=== PATIENT | male | born 1980 | race Caucasian/White ===

== ENCOUNTER 2020-05-06 14:55 | Emergency (ER) | payer BC, SELFPAY ==
--- NOTE | ~2020-05-06 | XR_ITS ---
EXAMINATION: XR foot LT min 3V DATE: 05/06/2020 15:15 INDICATION: Medial left foot pain post hyperextension and twisting injury TECHNIQUE: Dorsoplantar, two oblique and lateral views of the left foot were obtained. COMPARISON: None. FINDINGS: Alignment is normal. No fracture. Joint spaces are normal. Soft tissues are unremarkable. IMPRESSION: 1. Negative left foot radiographs. Reviewed, dictated and finalized at location A. ECTRIC PRESS OPERATOR
--- NOTE | 2020-05-06 15:01 | ED.LOWEXIN ---
HPI - Extremity Injury (Lower) General Chief Complaint: Extremity Injury, Lower Stated Complaint: lt foot/ankle injury Time Seen by Provider: 05/06/20 15:01 Source: patient and RN notes reviewed History of Present Illness HPI Narrative: Patient is a 39-year-old male who presents the urgent care with complaints of a left foot injury. Patient states that he jumped up a step in his house and slipped, falling backwards and bending the foot underneath him. Patient states that he is used ice, elevation and Tylenol. Patient states that weightbearing is intolerable as well as flexion of the foot. Patient also reports of some left inner ankle pains and swelling. Denies hitting his head or any loss of consciousness from fall. No other injuries reported. No acute distress noted. Patient aware of the plan of care. Some parts of this dictation were generated by voice recognition software and may contain typographical and/or grammatical inaccuracies. Related Data Home Medications Medication Instructions Recorded Confirmed No Home Medications 05/06/20 05/06/20 Allergies Allergy/AdvReac Type Severity Reaction Status Date / Time aspirin Allergy Unknown FAMILY Verified 03/21/16 16:52 HX/PT TREVIÑO NOT TAKE IT Review of Systems Review of Systems: Narrative: CONSTITUTIONAL: Denies fever, chills, or sweats. EYES: Denies visual changes, redness, or discharge. ENT: Denies rhinorrhea, congestion, sore throat, or otalgia. CARDIOVASCULAR: Denies chest pain, palpitations, or edema. RESPIRATORY: Denies cough or dyspnea. GASTROINTESTINAL: Denies abdominal pain, nausea, vomiting, or diarrhea. GENITOURINARY: Denies dysuria or hematuria. SKIN: Denies rash or itching. MUSCULOSKELETAL: Reports of left foot and left inner ankle pain NEUROLOGIC: Denies headache, numbness, or weakness. All other systems reviewed are negative, except as documented in HPI. PMFSH Comments At the time of my signature, I reviewed and agree with the nursing past medical, surgical, social, and family history. There is no relevant family history pertinent to the patient complaint. Exam Narrative: Exam Narrative: GENERAL: This is a well-nourished, well-developed patient, in no apparent distress. HEAD: normocephalic, atraumatic. EYES: PERRL. Sclera clear/white. Vision is grossly intact. EARS: External ears normal NOSE: External nose normal with no obvious nasal discharge, nares without redness, no rhinorrhea. THROAT: Mucous membranes moist NECK: Neck supple SKIN: warm, intact with no suspicious lesions or rash, good texture and turgor. NEURO: awake, alert, and oriented to person, place and time. There were no obvious focal neurologic abnormalities. EXTREMITIES: Mild edema/ecchymosis noted to the medial aspect of the left foot and malleolus. Very mild edema noted to the lateral dorsal left foot. Positive strong left pedal pulse with capillary refill less than 2 seconds. Range of motion limited due to pain. Pain exacerbated with weightbearing and flexion. Course Vital Signs Vital signs: Vital Signs Temperature 99.9 F H 05/06/20 15:42 Pulse Rate 109 H 05/06/20 15:42 Respiratory Rate 16 05/06/20 15:42 Blood Pressure 146/77 H 05/06/20 15:42 Pulse Oximetry 100 05/06/20 15:42 Temperature 99.9 F H 05/06/20 15:42 Pulse Rate 109 H 05/06/20 15:42 Respiratory Rate 16 05/06/20 15:42 Blood Pressure 146/77 H 05/06/20 15:42 Pulse Oximetry 100 05/06/20 15:42 Reviewed?patient is informed that they may have pre-hypertension or hypertension based on a blood pressure reading in the department. I recommend the patient call the primary care provider listed on their discharge instructions or a physician of their choice this week to arrange follow-up for further evaluation of possible pre-hypertension or hypertension. MDM - Extremity Injury (Lower) MDM Narrative Medical decision making narrative: Reviewed x-ray results with the patient. He is aware the
[2020-05-06 15:42] VITALS: BP 146/77; PULSE 109; RESP 16; TEMP 37.7; O2SAT 100
== END 2020-05-06 15:34 | disposition home or self-care (01) ==
PROVIDERS: Emergency Provider Nurse Practitioner Family
DX: M25.572 Pain in left ankle and joints of left foot (principal); S93.402A Sprain of unspecified ligament of left ankle, initial encounter; S96.912A Strain of unspecified muscle and tendon at ankle and foot level, left foot, initial encounter; W10.9XXA Fall (on) (from) unspecified stairs and steps, initial encounter
CPT/HCPCS: 73630; 99203; G0463

== ENCOUNTER → 2023-03-16 12:24 | Outpatient (CLI) | payer OTHER, SELFPAY ==
--- NOTE | ~2023-03-16 | XR_ITS ---
EXAMINATION: XR soft tissue neck DATE: 03/16/2023 12:42 INDICATION: Unspecified foreign body in larynx. TECHNIQUE: 2 views of the neck soft tissues were obtained. COMPARISON: None. FINDINGS: The adenoids, palatine tonsils, prevertebral soft tissues, epiglottis, and airway are dominique l. There is no radiopaque foreign body. IMPRESSION: 1. No radiopaque foreign body. Reviewed, dictated and finalized at location E. L FRONT DESK AGENT
== END ==
PROVIDERS: PCP Physician Assistant Medical; Visit Provider Physician Assistant Medical
DX: T17.308A Unspecified foreign body in larynx causing other injury, initial encounter (principal)
CPT/HCPCS: 70360

== ENCOUNTER 2023-04-04 09:38 | Outpatient (CLI) | payer OTHER, SELFPAY ==
--- NOTE | 2023-04-25 19:21 | WPDHOMESLEEP ---
Sleep Study - Home Unattended Date of Study: 04/04/23 Ordering Provider: Anny Goncalves PA-C Interpreting Provider: Lisa Kiser MD [facility] [place] Sleep Study Type: Watch PAT Height: 1.78 m Weight: 77.111 kg Body Mass Index: 24.3 Neck Circumference (inches): 14.5 Isabella: 4 Reason for Sleep Study Gasping for breath during the night, abnormal sleep Sleep History Jacinto Escalera is a 42-year-old man with irregular breathing during his sleep including episodes of waking up gasping for breath. He rarely awakens from sleep feeling short of breath. He never wakes at night with heartburn, belching or coughing.??He rarely snores, never frequently snores loudly enough that others complain. He frequently has trouble sleeping when he has a cold. He rarely wakes up gasping for breath during the night. He occasionally has breathing problems at night. He never sweats excessively at night. He rarely notices his heart pounding or beating irregularly during the night. He rarely falls asleep during the day. He never falls asleep involuntarily, never falls asleep while driving. He rarely experiences loss of muscle tone with strong emotion. He rarely has daytime difficulty at work due to excessive sleepiness. He never feels paralyzed on waking or falling asleep. He rarely experiences vivid dreams upon waking or falling asleep. He rarely feels afraid of going to sleep. He rarely has nightmares. He rarely recalls his dreams. He frequently has thoughts racing through his mind. He occasionally feels sad or depressed. He occasionally feels anxiety. He rarely notices parts of his body jerk. He never kicks during the night. He rarely feels crawling or aching feelings in his legs. He rarely feels leg pain at night. He never has morning jaw pain, never grinds his teeth at night. He occasionally feels bothered by pain during the day, rarely awakened by pain during the night. He rarely wakes up feeling stiff in the morning, and he rarely wakes feeling sore or achy. He occasionally awakens with pain in his neck, spine, or joints. Normal bedtime is 10:45 p.m., falling asleep within 5-15 minute, waking once at night at most sometimes no awakenings at all. Wake time is 6:00 a.m.. He typically gets 6 and half to 7 and half hours of sleep per night. He takes no regular naps in the day, although a short nap lasting 10-15 minutes might be refreshing. Habits:??Tobacco: never Caffeine: 2-3 cups of coffee a day Alcohol: none Recreational substances: none PMFSH Family History Family History Mother Asthma Social History Social History Smoking status: Never smoker Alcohol intake: current Substance use: never Living arrangements: with family Occupation/Education: occupation Gender identity (if verbalized by the patient): Male Sexual Orientation (if Verbalized by the Patient): Straight or Heterosexual Spiritual care concerns: No Medications Home Medications Medication Instructions Recorded Confirmed Type No Home Medications 05/06/20 03/16/23 History Sleep Procedure The sleep study was completed using FanMiles[employer] a technically adequate device with seven channels: peripheral arterial tone, actigraphy, body position, snore, respiratory movement, pulse oximetry, sleep staging, and heart rate. Prior to using the device, the patient received verbal and written instructions for its application and was provided with the help desk phone number for additional telephonic instruction with 24-hour availability of qualified personnel to answer questions. Sleep Architecture The total recording time is 8 hours 14 minutes. The total sleep time is 7 hours 29 minutes. Sleep latency is 6 minutes. REM latency is 57 minutes. The patient had 8 episodes of waking. Sleep architecture shows 23% deep sleep, 40% light sleep, and 37% stage
[2023-04-25 19:26] VITALS: BMI 24.3
== END 2023-04-05 07:30 | disposition home or self-care (01) ==
LOC: ANHCSM 09:39
PROVIDERS: PCP Family Medicine; Visit Provider Physician Assistant Medical
DX: G47.9 Sleep disorder, unspecified (principal); R40.0 Somnolence; R06.81 Apnea, not elsewhere classified
CPT/HCPCS: 95800

== ENCOUNTER 2025-03-14 14:31 | Emergency (ER) | payer BC, SELFPAY ==
--- OUTSIDE RECORDS SUMMARY | 2025-03-14 14:33 | XMS_ITS | Clinical Summary ---
Author Organization [facility] lin Address [address] [address] Care Team Providers Care Patient Safety Manager Name Role Phone Unavailable Primary Care Provider Unavailabl e Social History Tobacco Use Types Packs/Day Years Used Date Smoking Tobacco: Never Assessed Sex and Gender Information Value Date Recorded Sex Assigned at Not on file Legal Sex Male 9:38 PM EST Gender Identity Not on file Sexual Orientation Not on file Plan of Treatment Not on file Medical Devices Not on file Insurance [facility]
--- OUTSIDE RECORDS SUMMARY | 2025-03-14 14:33 | XMS_ITS | Encounter Summary ---
Author Organization [facility] Healthcare Address [address] [place] [address] Care Team Providers Care Barge Engineer Name Role Phone No, Physician Primary Care Provider [phone] Harvey Chairez MD Primary Care Provider Encounter Details Date Type Department Care Team (Late st Contact Info) Description 01/26/2025 Results Follow-Up [facility] Medical Group Convenient Care at [address] [phone] Odette Griffin PA [address] [place] [address] [address] [place] [address] Throat culture Throat Social History Tobacco Use Types Packs/Day Years Used Date Smoking Tobacco: Never Smokeless Tobacco: Never AUDIT-C Answer Date Recorded Q1: How often do you have a drink containing alc ohol? Monthly or less 03/13/2023 Q2: How many drinks containi ng alcohol do you have on a typical day when you are drinking? 1 or 2 03/13/2023 Q3: How often do you have si x or more drinks on one occasion? Never 03/13/2023 Sex and Gender Information Value Date Recorded Sex Assigned at Not on file Legal Sex Male 9:33 AM CDT Gender Identity Male 06/24/2021 10:35 AM CDT Sexual Orientation Straight 06/24/2021 10 :35 AM CDT documented as of this encounter Plan of Treatment Not on file documented as of this encounter Visit Diagnoses Not on filedocumented in this encounter Care Teams Barge Engineer Relationship Specialty Start Date End Date Leslie Physician PCP - General 06/24/21 02/08/25 Harvey Chairez MD [address] [address] PCP - General Family Medicine 02/09/25 documented as of this encounter
--- OUTSIDE RECORDS SUMMARY | 2025-03-14 14:34 | XMS_ITS | Clinical Summary ---
Author Organization [address] Address [address] [place] [phone] Care Team Providers Care Guitar Maker Hand Name Role Phone Harvey Chairez MD Primary Care Provider Allergies Active Allergy Reactions Criticality Noted Date Comments Aspirin Other (See comments) 03/16/2023 Medications fexofenadine (Leticia Allergy) 180 mg tablet Take 1 tablet (180 mg total) by mouth daily 4 Active albuterol HFA (PROVENTIL HFA,VENTOLIN HFA,PROAIR HFA) 90 mcg/actuation inhalerIndicati ons:Shortness of breath Inhale 2 puffs every 6 (six) hours as needed for wheezing 3 each 4 5 04/18/19 26 Active benzonatate (TESSALON) 200 mg capsuleIndicati ons:Acute cough Take 1 capsule (200 mg total) by mouth 3 (three) times a day as needed for cough keep tessalon out of reach of children, especially children under the age of 10, due to possible serious risk such as if ingested by children under the age of 10. 30 capsule 5 Active azithromycin (ZITHROMAX) 250 mg tabletIndicatio ns:Acute cough Take 2 tabs (500 mg) by mouth today, than 1 tab (250 mg) daily for 4 days. 6 tablet 5 02/15/20 25 Active Problems No known active problems Encounters Date Type Department Care Team Description 02/09/2025 7:00 PM RIM FIRE PRIMING TOOL SETTER Office Visit [facility] Care at [address] [phone] Julio Holland NP Acute cough (Primary Dx); Laryngitis 01/26/2025 Results Follow-Up [facility] Convenient Care at [address] [phone] Odette Griffin PA Throat culture Throat 01/24/2025 4:14 PM RIM FIRE PRIMING TOOL SETTER - 01/24/2025 11:59 PM RIM FIRE PRIMING TOOL SETTER Hospital Encounter [address] [address] Acute cough; Laryngitis Discharge Disposition: Discharge to home or self care 01/24/2025 3:30 PM RIM FIRE PRIMING TOOL SETTER Office Visit [facility] Convenient Care at [address] [phone] Odette Griffin PA Acute cough (Primary Dx); Laryngitis from Last 3 Months Medical History Medical History Date Comments Anxiety 2017 Depression 2017 Family History Medical History Relation Name Comments Allergy (severe) Brother Michael Escalera Allergy (severe) Mother Carmel Escalera Relation Name Status Comments Brother Michael Escalera Mother Carmel Escalera Social History Tobacco Use Types Packs/Day Years [...] Orientation Straight 06/24/2021 10 :35 AM CDT Last Filed Vital Signs Vital Sign Reading Time Taken Comments Blood Pressure 120/76 02/09/2025 6:33 PM RIM FIRE PRIMING TOOL SETTER Pulse 91 02/09/2025 6:33 PM RIM FIRE PRIMING TOOL SETTER Temperature 36.6 C (97.8 F) 02/09/2025 6:33 PM RIM FIRE PRIMING TOOL SETTER Respiratory Rate 20 02/09/2025 6:33 PM RIM FIRE PRIMING TOOL SETTER Oxygen Saturation 97% 02/09/2025 6:33 PM RIM FIRE PRIMING TOOL SETTER Inhaled Oxygen Concentration - - Weight 81.6 kg (180 lb) 02/09/2025 6:33 PM RIM FIRE PRIMING TOOL SETTER Height 177.8 cm (5' 10) 02/09/2025 6:33 PM RIM FIRE PRIMING TOOL SETTER Body Mass Index 25.83 02/09/2025 6:33 PM RIM FIRE PRIMING TOOL SETTER Plan of Treatment Health Maintenance Due Date Last Done Comments Depression Screening 1982 Hepatitis C Screening 1982 DTaP/Tdap/Td Vaccine (6 - Tdap) 10/03/1997 10/02/1997, 10/26/1988, 09/01/1984, Additional history exists Hepatitis B Screening 2000 Regular Well Visit/Exam 18-64 2000 HPV Vaccines (1 - 3-dose SCDM series) 2009 Covid-19 Vaccine ( season) 2024 01/28/2021, 07/15/2020, 06/24/2020 Influenza Vaccine (#1) 2024 01/05/2020, 2014 Varicella Vaccines Completed 11/06/1997, 10/02/1997 Pneumococcal vaccine <65 Aged Out No longer eligible based on patient's age to complete this topic Procedures Procedure Name Priority Date/Time Associated Diagnosis Comments THROAT CULTURE Routine 01/24/2025 4:14 PM RIM FIRE PRIMING TOOL SETTER Acute cough Laryngitis POC INFLUENZA A/B, COVID-19 ANTIGEN Routine 01/24/2025 3:57 PM RIM FIRE PRIMING TOOL SETTER Acute cough POCT RAPID STREP Routine 01/24/2025 3:48 PM RIM FIRE PRIMING TOOL SETTER Acute cough from Last 3 Months Results * Throat culture Throat (01/24/2025 4:14 PM RIM FIRE PRIMING TOOL SETTER) Report Final Report: No growth of pathogens. Comment:Testing performed by : [facility], [address] [facility], [place]., [address] Throat 01/24/2025 4:14 PM RIM FIRE PRIMING TOOL SETTER 01/25/2025 12:01 AM RIM FIRE PRIMING TOOL SETTER Narrative [facility] - 01/25/2025 9:11 PM RIM FIRE PRIMING TOOL SETTER Testing performed by [facility] ([phone]). Odette MAE LAB MICROBIOLOGY - GENER AL ORDERABLES Final Result [facility] [address] [place] [address] * POC Influenza A/B, COVID-19 antigen (01/24/2025 3:57 PM RIM FIRE PRIMING TOOL SETTER) Influenza A Ag, POC Negative Negative [facility] Influenza B Ag, POC Negative Negative [facility] COVID-19 Ag POC Presumptive Negative Presumptive Negative, Invalid [facility] Nasal 01/24/2025 3:57 PM RIM FIRE PRIMING TOOL SETTER Odette MAE POINT OF CARE TEST ORDER RAYMOND Final Result Performing Organization Address City/[facility] Co de Phone Number [facility] [address] [place] [address] * POCT rapid strep A (01/24/2025 3:48 PM RIM FIRE PRIMING TOOL SETTER) Rapid Strep A, POC Negative Negative Swab 01/24/2025 3:48 PM RIM FIRE PRIMING TOOL SETTER Odette MAE POINT OF CARE TEST ORDER RAYMOND Final Result from Last [address] [place] [address] [facility] Care Teams Guitar Maker Hand Relationship Specialty Start Date End Date Harvey Chairez MD [address] [facility] [address] [place] [address] PCP - General Family Medicine 02/09/25
[2025-03-14 14:59] VITALS: BP 130/72; PULSE 118; RESP 16; TEMP 37.2; O2SAT 100
[2025-03-14 15:01] VITALS: O2SAT 100
--- NOTE | 2025-03-14 15:05 | ED.URI ---
HPI - URI/Sore Throat General Chief Complaint: Upper Respiratory Infection Stated Complaint: UPPER RESP SYMPTOMS Time Seen by Provider: 03/14/25 14:44 Source: patient Mode of arrival: ambulatory Limitations: no limitations History of Present Illness HPI Narrative: This is a 44-year-old male with no significant past medical history who presents the ED for flu-like symptoms. Patient states for the past few days, he has had a worsening cough productive of yellow sputum. He has had subjective fevers. He was diagnosed with a bronchitis a month ago and was started on a Z-Denis and steroids for that which he believes he got couple weeks ago. He was seen in urgent care today and was advised to come to ED for further evaluation. Related Data Allergies Allergy/AdvReac Type Severity Reaction Status Date / Time aspirin Allergy Unknown FAMILY Verified 03/14/25 15:02 HX/PT TREVIÑO NOT TAKE IT Review of Systems Review of Systems: All systems reviewed & are unremarkable except as noted in HPI and below PMFSH Past Medical History Medical History Dysphonia Family History Family History Mother Asthma Social History Social History Social History: Smoking status: Never smoker Second hand tobacco smoke exposure: No Alcohol intake: current Substance use: never Substance use type: does not use Lack of Transportation: No Lack of Food: Never True Current Housing: I Have Housing Concerned About Future Housing: No Difficulty Paying Gas/Electric Bills: No Difficulty Paying for Meds: No Currently Unemployed: No Education: Don't Know Difficulty w/ Childcare or Family Care: No Living arrangements: with family Occupation/Education: occupation Gender identity (if verbalized by the patient): Male Sexual Orientation (if Verbalized by the Patient): Straight or Heterosexual Spiritual care concerns: No Exam Narrative: APPEARANCE: No acute distress, nontoxic, resting in bed EYES: EOMI HEENT: Normocephalic, atraumatic, OMM RESPIRATORY: No respiratory distress Clear to auscultation bilaterally with no rhonchi wheezing or rales. CARDIOVASCULAR: Regular rate and rhythm without murmurs rubs or gallops. ABDOMINAL: Soft, nontender, nondistended, no rebound or guarding MUSCULOSKELETAl: Moves all extremities. No clubbing, cyanosis or edema. NEURO: Awake and alert. Following commands, speech normal, no focal deficits SKIN:: Warm, dry. No rashes lesions or abrasions PSYCHIATRIC: Normal affect/mood, Course Vital Signs Vital signs: Vital Signs Temperature 98.9 F 03/14/25 14:59 Pulse Rate 118 H 03/14/25 14:59 Respiratory Rate 16 03/14/25 14:59 Blood Pressure 130/72 03/14/25 14:59 Pulse Oximetry 100 03/14/25 14:59 Oxygen Delivery Room Air 03/14/25 14:59 Temperature 98.9 F 03/14/25 14:59 Pulse Rate 118 H 03/14/25 14:59 Respiratory Rate 16 03/14/25 14:59 Blood Pressure 130/72 03/14/25 14:59 Pulse Oximetry 100 03/14/25 15:01 Oxygen Delivery Room Air 03/14/25 15:01 [facility] MDM Narrative Medical decision making narrative: 44-year-old male Presenting for flu-like symptoms. On initial evaluation patient was in no acute distress afebrile, hemodynamic stable. Differentials include but are not limited to: ACS, CHF Exacerbation, COPD exacerbation, PE, PNA, PTX, bronchitis, viral syndrome Notable exam findings: Tachycardic, otherwise heart and lungs clear I personally reviewed the patient's lab result. Notable lab findings: Leukocytosis 11.1, CMP without significant abnormalities. COVID/flu/RSV negative. D-dimer negative. I personally reviewed the patient's images and interpret as follows: Chest x-ray from outside facility on my read shows a possible right lower lobe infiltrate Patient likely has pneumonia. PE has been ruled out. He was started on amoxicillin. He was given a prescription for amoxicillin. He was advised follow-up with his PCP in the next week for re-evaluation. Patient was agreeable to this plan. Given strict return precautions. Differential Diagnosis Differential Diagnosis: ACS, CHF Exacerbation, COPD exacerbation, PE, PNA, PTX, bronchitis, viral syndrome Lab Data 03/14/25 15:18 03/14/25 15:18 Labs: Lab Results 03/14/25 Range/Units 15:18 WBC 11.1 H (4.5-10.0) K/mm3 RBC 5.24 (4.6-6.20) M/mm3 Hgb 15.8 (14.0-18.0) g/dL Hct 46.3 (42.0-52.0) % MCV 88.4 (80-100) fl MCH 30.2 (26-34) pg MCHC 34.1 (32-36) g/dl RDW 12.5 (11.5-14.5) % Plt Count 258 (150-375) k/mm3 MPV 9.5 (7.4-10.4) fl Immature Gran % (Auto) 0.3 (0-0.5) % Neut % (Auto) 83.3 H (45.5-73.1) % Lymph % (Auto) 8.9 L (18.3-44.2) % [place] % (Auto) 6.7 (2.6-8.5) % Eos % (Auto) 0.4 (0-4.4) % Baso % (Auto) 0.4 (0.2-1.2) % Lymph # (Auto) 0.99 (0.9-3.2) K/mm3 [place] # (Auto) 0.7 H (0.1-0.6) K/mm3 Eos # (Auto) 0.0 (0-0.3) K/mm3 Baso # (Auto) 0.0 (0.0-0.1) K/mm3 Abs Immat Gran (auto) 0.03 (0.00-0.031) K/mm3 Absolute Neuts (auto) 9.3 H (1.3-6.7) K/mm3 Absolute Nucleated RBC 0.000 (0.0-0.012) K/mm3 Nucleated RBC % 0.0 (0.0-0.2) % D-Dimer < 0.27 (<0.48) ug/mL Sodium 140 (137-145) mmol/L Potassium 3.5 (3.4-5.0) mmol/L Chloride 103 (98-107) mmol/L Carbon Dioxide 27 (22-30) mmol/L Anion Gap 10 (4-12) mmol/L BUN 10 (9-20) mg/dL Creatinine 0.87 (0.7-1.3) mg/dL Estim Creat Clear Calc 100 ml/min Estimated GFR > 60 (59 - ) Glucose 96 (65-110) mg/dL Calcium 9.4 (8.4-10.2) mg/dL Total Bilirubin 0.6 (0.2-1.3) mg/dL AST 33 (17-59) U/L ALT 38 (6-50) U/L Alkaline Phosphatase 87 (38-126) U/L Total Protein 8.3 H (6.3-8.2) g/dL Albumin 4.9 (3.5-5.1) g/dL Influenza A (RT-PCR) Negative (Negative) Influenza B (RT-PCR) Negative (Negative) RSV (RT-PCR) Negative (Negative) SARS-CoV-2 RNA (RT-PCR) Negative (Negative) Discharge Plan Discharge Clinical Impression: Community acquired pneumonia Qualifiers: Laterality: right Lung location: lower lobe of lung Qualified Code(s): J18.9 - Pneumonia, unspecified organism Patient Disposition: Home Condition: Stable Instructions: Antibiotic Form, Community Acquired Pneumonia (ED) Additional Instructions: Take amoxicillin as prescribed. Follow-up with your PCP in the next week for re-evaluation. Return to the ED for any new worsening symptoms Patient Language: Lebanese Prescriptions: New amoxicillin 500 mg capsule 1,000 mg PO Q8H 5 Days Qty: 30 0RF No Action methylprednisolone [Medrol (Denis)] 4 mg tablets,dose pack See Rx Instructions PO PER PKG DIR Qty: 21 0RF Rx Instructions: PO PER PKG DIR Follow-up/Referrals: Harvey Chairez MD [Primary Care Provider, [facility]]
[2025-03-14] MEDS: SODIUM CHLORIDE 0.9% IV 1,000 ML 999 ML IV CONT (15:21)
[2025-03-14 15:24] LABS: Hematocrit 46.3 % (42.0-52.0); Hemoglobin 15.8 g/dL (14.0-18.0); Immature Granulocyte Percent A 0.3 % (0-0.5); Lymphocytes Absolute Auto 0.99 K/mm3 (0.9-3.2); Mean Corpuscular HGB Conc 34.1 g/dl (32-36); Mean Corpuscular Hemoglobin 30.2 pg (26-34); Mean Corpuscular Volume 88.4 fl (80-100); Nucleated Red Blood Cells Absolute Auto 0.000 K/mm3 (0.0-0.012); Nucleated Red Blood Cells Perc 0.0 % (0.0-0.2); Platelet Count Result 258 k/mm3 (150-375); Red Blood Count 5.24 M/mm3 (4.6-6.20); White Blood Count 11.1 K/mm3 (4.5-10.0)
[2025-03-14 15:33] LABS: Alanine Aminotransferase 38 U/L (6-50); Albumin Level 4.9 g/dL (3.5-5.1); Alkaline Phosphatase 87 U/L (38-126); Anion Gap 10 mmol/L (4-12); Aspartate Amino Transferase 33 U/L (17-59); Bilirubin,Total 0.6 mg/dL (0.2-1.3); Blood Urea Nitrogen 10 mg/dL (9-20); Calcium 9.4 mg/dL (8.4-10.2); Carbon Dioxide 27 mmol/L (22-30); Chloride 103 mmol/L (98-107); Estimated CRCL calculation 100 ml/min; Estimated Glomerular Filt Rate > 60; Glucose 96 mg/dL (65-110); Potassium 3.5 mmol/L (3.4-5.0); Sodium 140 mmol/L (137-145); Total Protein 8.3 g/dL (6.3-8.2)
[2025-03-14 16:01] LABS: Influenza A QL RT-PCR Negative (Negative); Influenza B QL RT-PCR Negative (Negative); RSV RNA, RT-PCR Negative (Negative); SARS-CoV-2 RNA PCR Negative (Negative)
[2025-03-14] MEDS: AMOXICILLIN 500 MG CAPSULE 1000 MG PO (16:18)
== END 2025-03-14 16:24 | disposition home or self-care (01) ==
PROVIDERS: Emergency Provider Student in an Organized Health Care Education/Training Program; PCP Family Medicine
DX: J18.9 Pneumonia, unspecified organism (principal); Z20.822 Contact with and (suspected) exposure to COVID-19
CPT/HCPCS: 36415; 80053; 85025; 85380; 87637; 96360; 99283; A9270; J7030